=== PATIENT | male | born 2000 | race Two or more races ===

== ENCOUNTER 2022-09-21 13:04 | Emergency (ER) | payer OTHER, SELFPAY ==
--- NOTE | ~2022-09-21 | XR_ITS ---
EXAMINATION: XR CHEST CLINICAL INFORMATION: Fever, shortness of breath. COMPARISON: None available. TECHNIQUE: Frontal view of the chest was obtained. FINDINGS: No significant abnormality is noted involving the heart, lungs, mediastinum, bony thorax or soft tissues. XR/XR chest 1V IMPRESSION: No acute cardiopulmonary process.
[2022-09-21 14:11] VITALS: BP 141/73; PULSE 114; RESP 19; TEMP 39.1; O2SAT 98; BMI 53.1
--- NOTE | 2022-09-21 14:19 | ED_ITS ---
HPI - General Adult General Chief complaint: Fever <GERMAINE Chavez - Last Filed: 09/21/22 15:34> Stated complaint: fever <GERMAINE Chavez - Last Filed: 09/21/22 15:34> Time Seen by Provider: 09/21/22 17:07 <GERMAINE Chavez - Last Filed: 09/21/22 15:34> Source: patient <Georgiana Sutton NP - Last Filed: 09/21/22 17:35> Mode of arrival: ambulatory <Georgiana Sutton NP - Last Filed: 09/21/22 17:35> Limitations: no limitations <Georgiana Sutton NP - Last Filed: 09/21/22 17:35> History of Present Illness HPI narrative: 22-year-old male with history of hypertension, sleep apnea who presents to the ER with complaints of sore throat, nasal congestion, headache, body aches, neck pain, fevers since Tuesday morning. Patient denies any cough, difficulty breathing, difficulty swallowing, abdominal pain, vomiting, diarrhea, chest pain. Patient reports he was around a child in the last week who had strep pharyngitis. No recent travel <Georgiana Sutton NP - Last Filed: 09/21/22 17:35> Related Data Home medications: Previous Rx's Medication Instructions Recorded amoxicillin 875 mg-potassium 1 tab PO BID #14 tabs 09/21/22 clavulanate 125 mg tablet ibuprofen 800 mg tablet 800 mg PO Q8H PRN pain #30 tabs 09/21/22 <GERMAINE Chavez - Last Filed: 09/21/22 15:34> Allergies/adverse reactions: Allergies Allergy/AdvReac Type Severity Reaction Status Date / Time No Known Allergies Allergy Verified 09/21/22 14:14 <GERMAINE Chavez - Last Filed: 09/21/22 15:34> Review of Systems Review of Systems: Yes all other systems are reviewed and are negative <Georgiana Sutton NP - Last Filed: 09/21/22 17:35> Constitutional: Constitutional: Reports no additional constitutional complaints, Reports body ache(s), Denies chills, Reports fever(s), Reports headache(s) and Denies weakness <Georgiaan Sutton [employer]A FOUNTAIN CLERK - Last Filed: 09/21/22 17:35> Eyes: Eyes: Reports no additional eye complaints and Denies change in vision <Georgiana Sutton [employer] FOUNTAIN CLERK - Last Filed: 09/21/22 17:35> ENT: Reports system reviewed and no additional complaints, except as documented, Denies dizziness, Reports headache(s), Reports nasal congestion, Denies nasal discharge, Reports neck pain and Reports sore throat <Georgiana Sutton, [employer] FOUNTAIN CLERK - Last Filed: 09/21/22 17:35> Cardiovascular: Cardiovascular: Reports no additional cardiovascular com plaints, Denies chest pain, Denies leg edema and Denies dyspnea <Georgiana Sutton [employer] FOUNTAIN CLERK - Last Filed: 09/21/22 17:35> Respiratory: Respiratory: Reports no additional respiratory complaints, Denies cough and Denies dyspnea <Georgiana Sutton [employer] FOUNTAIN CLERK - Last Filed: 09/21/22 17:35> Gastrointestinal: Gastrointestinal: Reports no additional gastrointestinal complaints, Denies abdominal pain, Denies diarrhea, Denies nausea and Denies vomiting <Georgiana Sutton, [employer] FOUNTAIN CLERK - Last Filed: 09/21/22 17:35> Genitourinary: Genitourinary: Denies urinary incontinence <Georgiana Sutton, [employer] FOUNTAIN CLERK - Last Filed: 09/21/22 17:35> Musculoskeletal: Musculoskeletal: Reports no additional musculoskeletal complaints, Denies back pain, Denies arthralgias, Denies joint swelling, Reports neck pain, Denies numbness and Denies tingling <Georgiana Sutton [employer] FOUNTAIN CLERK - Last Filed: 09/21/22 17:35> Integumentary/Breasts: Skin/Breast: Reports system reviewed and no additional complaints, except as docu and Denies rash <Georgiana Sutton [employer] FOUNTAIN CLERK - Last Filed: 09/21/22 17:35> Neurologic: Reports system reviewed and no additional complaints, except as documented, Denies dizziness, Reports headache(s), Denies numbness, Denies tingling and Denies weakness <Georgiana Sutton [employer] FOUNTAIN CLERK - Last Filed: 09/21/22 17:35> PMFSH Past Medical History Attestation statement: The following information was validated with the patient. <Georgiana Sutton NP - Last Filed: 09/21/22 17:35> Source: old records reviewed and nursing notes reviewed <Georgiana Sutton NP - Last Filed: 09/21/22 17:35> Social History Social History: Social History Smoked in Last 30 Days: No Use of substances other than those prescribed or required for medical reasons: No Advance Directives: No Advance Directives Information Provided: Yes <GERMAINE Chavez - Last Filed: 09/21/22 15:34> Physical Exam ED Vital Signs: Vital Signs - 24 hr 09/21/22 14:11 09/21/22 17:14 Temperature 102.3 F H 100.2 F Pulse Rate 114 H 111 H Respiratory Rate 19 20 Blood Pressure 141/73 H 140/83 H Pulse Oximetry 98 97 Oxygen Delivery Method Room Air BMI result Body Mass Index 53.1 <GERMAINE Chavez - Last Filed: 09/21/22 15:34> Vital Signs - 24 hr 09/21/22 14:11 09/21/22 17:14 Temperature 102.3 F H 100.2 F Pulse Rate 114 H 111 H Respiratory Rate 19 20 Blood Pressure 141/73 H 140/83 H Pulse Oximetry 98 97 Oxygen Delivery Method Room Air BMI result Body Mass Index 53.1 <Georgiana Sutton NP - Last Filed: 09/21/22 17:35> Const General: cooperative, healthy appearing, comfortable and no acute distress <Georgiana Sutton NP - Last Filed: 09/21/22 17:35> Orientation/consciousness: patient oriented x3 <Georgiana Sutton NP - Last Filed: 09/21/22 17:35> Limitations: no limitations <Georgiana Sutton NP - Last Filed: 09/21/22 17:35> HENMT Head: Yes normal to inspection <Georgiana Sutton NP - Last Filed: 09/21/22 17:35> Ears: hearing grossly normal bilaterally, mastoids normal, no periauricular adenopathy and TM abnormal bulging and erythematous <Georgiana Sutton [employer] FOUNTAIN CLERK - Last Filed: 09/21/22 17:35> Mouth: Normal oral and palatal mucosa present <Georgiana Sutton [employer] FOUNTAIN CLERK - Last Filed: 09/21/22 17:35> Throat: Yes uvula midline and Yes abnormal tonsil (bilateral tonsillar erythema/exudate with no CONSULTANT DIETITIAN) <Georgiana Sutton [employer] FOUNTAIN CLERK - Last Filed: 09/21/22 17:35> Eyes General: appearance normal, both eyes and all related structures <Georgiana Sutton [employer] FOUNTAIN CLERK - Last Filed: 09/21/22 17:35> Pupils: Equal, round and reactive pupils present <Georgiana Sutton [employer] FOUNTAIN CLERK - Last Filed: 09/21/22 17:35> Neck Neck: Yes normal visual inspection, Yes full ROM, Yes no lymphadenopathy, Yes no meningeal signs, No positive Brudzinski's sign and No positive Kernig's sign <Georgiana Sutton [employer] FOUNTAIN CLERK - Last Filed: 09/21/22 17:35> Chest Chest palpation & inspection: normal inspection of the chest <Georgiana Sutton [employer] FOUNTAIN CLERK - Last Filed: 09/21/22 17:35> Resp Effort & Inspection: normal respiratory effort <Georgiana Sutton [employer] FOUNTAIN CLERK - Last Filed: 09/21/22 17:35> Auscultation: clear to auscultation bilaterally <Georgiana Sutton [employer] FOUNTAIN CLERK - Last Filed: 09/21/22 17:35> Cardio Rate: regular rate <Georgiana Sutton [employer] FOUNTAIN CLERK - Last Filed: 09/21/22 17:35> Rhythm: regular rhythm <Georgiana Sutton [employer] FOUNTAIN CLERK - Last Filed: 09/21/22 17:35> Peripheral pulses: Peripheral pulses 2+ throughout <Georgiana Sutton [employer] FOUNTAIN CLERK - Last Filed: 09/21/22 17:35> GI Inspection: Yes normal to inspection <Georgiana Sutton [employer] FOUNTAIN CLERK - Last Filed: 09/21/22 17:35> Palpation (GI): Soft to palpation and nontender <Georgiana Sutton [employer] FOUNTAIN CLERK - Last Filed: 09/21/22 17:35> General: Yes no CVA tenderness <Georgiana Skyecci, [employer] FOUNTAIN CLERK - Last Filed: 09/21/22 17:35> Back/Spine/Pelvis Back: no CVA tenderness <Georgiana Pascucci, [employer] FOUNTAIN CLERK - Last Filed: 09/21/22 17:35> Thoracic/Lumbar Spine: thoracic and lumbar spine normal to inspection <Georgiana Sindyi, [employer] FOUNTAIN CLERK - Last Filed: 09/21/22 17:35> Skin General skin exam: no rashes or lesions noted <Georgiana Paslinocci, [employer] FOUNTAIN CLERK - Last Filed: 09/21/22 17:35> Neuro General: patient oriented x3, moves all extremities and no meningeal signs <Georgiana Lesley, [employer] FOUNTAIN CLERK - Last Filed: 09/21/22 17:35> Cranial nerves: Yes Equal, round and reactive pupils present <Georgiana Paslinocci, [employer] FOUNTAIN CLERK - Last Filed: 09/21/22 17:35> Cognition (Neuro): normal cognition <Georgiana Skyecci, [employer] FOUNTAIN CLERK - Last Filed: 09/21/22 17:35> Gait exam (Neuro): Normal gait present <Georgiana Paslinocci, [employer] FOUNTAIN CLERK - Last Filed: 09/21/22 17:35> Extrem General: Yes normal to inspection, Yes no pedal edema and Yes no calf tenderness <Georgianamic Sutton, [employer] FOUNTAIN CLERK - Last Filed: 09/21/22 17:35> Course Course Course Narrative: This is an RME: Additional HPI, ROS, PE not included below will be deferred to primary provider. 22-year-old male presents for evaluation of fevers 103-104F at home, sore throat, headache, neck stiffness x2 days rapidly worsening. Also reporting associated lightheadedness. Was seen at urgent care negative covid and flu yesterday. PE- discomfort w/ flexion of neck. Neuro nonfocal. rapid regular rythem likley sinus tach. lungs clear Plan- blood cultures, lactic, basic labs, cxr, urine, viral test 1534 Patient noted to elevated white cell count, tachycardia, fever, tachycardia likely secondary to fever and viral illness. Patient positive for strep throat. I do not suspect severe sepsis. Patient is stable in the waiting chemistry still pending <GERMAINE Chavez - Last Filed: 09/21/22 15:34> Reevaluation(s) Reevaluation #1: Strep screen is positive. Patient with mild leukocytosis which is likely secondary to strep infection. All other labs are unremarkable. COVID screen is negative. Chest x-ray shows no acute finding. Patient received Tylenol with improvement of heart rate and temperature. Patient is tolerating secretions with no difficulty. Patient will be discharged home with antibiotics, recommendations for Motrin or Tylenol as needed. Reviewed worrisome signs and symptoms of when to return to the emergency room. Comfortable plan for discharge home. <Georgiana Sutton NP - Last Filed: 09/21/22 17:35> Medications Administered Discontinued Medications Generic Name Dose Route Start Last Admin Trade Name Freq PRN Reason Stop Dose Admin Acetaminophen 650 mg 09/21/22 14:18 09/21/22 17:19 Acetaminophen 325 Mg Tablet PO 09/21/22 14:19 650 mg ONCE ONE Administration <GERMAINE Chavez - Last Filed: 09/21/22 15:34> Medications Administered Discontinued Medications Generic Name Dose Route Start Last Admin Trade Name Freq PRN Reason Stop Dose Admin Acetaminophen 650 mg 09/21/22 14:18 09/21/22 17:19 Acetaminophen 325 Mg Tablet PO 09/21/22 14:19 650 mg ONCE ONE Administration <Georgiana Sutton NP - Last Filed: 09/21/22 17:35> Medical Decision Making Medical Decision Making MDM Narrative: This a 22-year-old male who presents with 2 days of fever, sore throat, nasal congestion, headache, body aches. On arrival patient with bilateral tonsillar erythema and swelling as well as bilateral TM erythema and bulging. No evidence of peritonsillar abscess. Patient tolerating secretions with no difficulty. Lungs are clear. No meningeal signs or lymphadenopathy. Full range of motion of cervical spine. Patient with fever of 102.3 and tachycardia which is likely secondary to fever. Patient had labs, chest x-ray, COVID and strep testing ordered from triage <Georgiana Sutton NP - Last Filed: 09/21/22 17:35> Differential Diagnosis Differential Diagnoses: The differential diagnosis associated with the presentation includes <Georgiana Sutton NP - Last Filed: 09/21/22 17:35> Strep pharyngitis, viral syndrome Low concern for meningitis (no meningeal signs, FROM of neck) or bacteremia, peritonsillar abscess or retropharyngeal abscess <Georgiana Sutton NP - Last Filed: 09/21/22 17:35> Lab Data MDM Lab Attestation statement: I reviewed the patient's lab results. <Georgiana Sutton NP - Last Filed: 09/21/22 17:35> Result Diagrams: 09/21/22 14:57 09/21/22 14:57 <GERMAINE Chavez - Last Filed: 09/21/22 15:34> Labs: Lab Results 09/21/22 09/21/22 09/21/22 Range/Units 14:57 14:57 14:57 WBC 14.8 H (4.8-10.8) X10*3/uL RBC 4.47 L (4.60-5.80) X10*6/uL Hgb 13.2 L (14.0-18.0) g/dl Hct 39.5 L (42.0-52.0) % MCV 88.4 (80.0-98.0) fL MCH 29.5 (27.0-33.0) pg MCHC 33.4 (31.0-36.0) g/dl RDW 13.7 (11.0-16.0) % Plt Count 299 (160-400) X10*3/uL MPV 8.8 L (9.4-12.4) fL Immature Gran % (Auto) 0.5 H (0.0-0.4) % Neut % (Auto) 76.4 H (45-73) % Lymph % (Auto) 10.5 L (20-40) % Yell % (Auto) 12.2 H (2-11) % Eos % (Auto) 0.1 (0-4) % Baso % (Auto) 0.3 (0-2) % Lymph # (Auto) 1.6 (1.2-4.9) X10*3/uL Yell # (Auto) 1.8 H (0.1-1.2) X10*3/uL Eos # (Auto) 0.0 (0.0-0.4) X10*3/uL Baso # (Auto) 0.0 (0.0-0.2) X10*3/uL Abs Immat Gran (auto) 0.07 H (0.00-0.03) X10*3/uL Absolute Neuts (auto) 11.3 H (2.0-8.3) x10*3/uL Absolute Nucleated RBC 0.000 (0.0-0.012) X10*3/uL Nucleated RBC % (auto) 0.0 (0.0-0.2) /100WBC Smear Tech's Comments VERIFIED Sodium 136 (135-145) mmol/L Potassium 4.0 (3.3-5.1) mmol/L Chloride 100 (96-108) mmol/L Carbon Dioxide 25 (22-29) mmol/L Anion Gap 15 (12-20) BUN 12 (9-16) mg/dL Creatinine 1.03 (0.5-1.4) mg/dL Estim Creat Clear Calc 153.2 Estimated GFR > 60 Random Glucose 106 (60-115) mg/dL Lactic Acid (0.5-2.0) mmol/L Calcium 9.4 (8.4-10.2) mg/dL Magnesium 1.9 (1.6-2.6) mg/dL Total Bilirubin 0.6 (0.0-1.0) mg/dL AST 20 (5-37) U/L ALT 24 (0-40) U/L Alkaline Phosphatase 107 (39-117) U/L Total Protein 7.4 (6.5-8.0) g/dL Albumin 4.4 (3.5-5.0) g/dL COVID-19 (ZHEN) (Negative) COVID-19 Clin Com Monoscreen (Negative) S. pyogenes GrpA REGINALD Positive A (Negative) 09/21/22 09/21/22 09/21/22 Range/Units 14:57 14:57 14:57 WBC (4.8-10.8) X10*3/uL RBC (4.60-5.80) X10*6/uL Hgb (14.0-18.0) g/dl Hct (42.0-52.0) % MCV (80.0-98.0) fL MCH (27.0-33.0) pg MCHC (31.0-36.0) g/dl RDW (11.0-16.0) % Plt Count (160-400) X10*3/uL MPV (9.4-12.4) fL Immature Gran % (Auto) (0.0-0.4) % Neut % (Auto) (45-73) % Lymph % (Auto) (20-40) % Yell % (Auto) (2-11) % Eos % (Auto) (0-4) % Baso % (Auto) (0-2) % Lymph # (Auto) (1.2-4.9) X10*3/uL Yell # (Auto) (0.1-1.2) X10*3/uL Eos # (Auto) (0.0-0.4) X10*3/uL Baso # (Auto) (0.0-0.2) X10*3/uL Abs Immat Gran (auto) (0.00-0.03) X10*3/uL Absolute Neuts (auto) (2.0-8.3) x10*3/uL Absolute Nucleated RBC (0.0-0.012) X10*3/uL Nucleated RBC % (auto) (0.0-0.2) /100WBC Smear Tech's Comments Sodium (135-145) mmol/L Potassium (3.3-5.1) mmol/L Chloride (96-108) mmol/L Carbon Dioxide (22-29) mmol/L Anion Gap (12-20) BUN (9-16) mg/dL Creatinine (0.5-1.4) mg/dL Estim Creat Clear Calc Estimated GFR Random Glucose (60-115) mg/dL Lactic Acid 1.3 (0.5-2.0) mmol/L Calcium (8.4-10.2) mg/dL Magnesium (1.6-2.6) mg/dL Total Bilirubin (0.0-1.0) mg/dL AST (5-37) U/L ALT (0-40) U/L Alkaline Phosphatase (39-117) U/L Total Protein (6.5-8.0) g/dL Albumin (3.5-5.0) g/dL COVID-19 (ZHEN) Negative (Negative) COVID-19 Clin Com See Note Monoscreen Negative (Negative) S. pyogenes GrpA REGINALD (Negative) <GERMAINE Chavez - Last Filed: 09/21/22 15:34> Lab Results 09/21/22 09/21/22 09/21/22 Range/Units 14:57 14:57 14:57 WBC 14.8 H (4.8-10.8) X10*3/uL RBC 4.47 L (4.60-5.80) X10*6/uL Hgb 13.2 L (14.0-18.0) g/dl Hct 39.5 L (42.0-52.0) % MCV 88.4 (80.0-98.0) fL MCH 29.5 (27.0-33.0) pg MCHC 33.4 (31.0-36.0) g/dl RDW 13.7 (11.0-16.0) % Plt Count 299 (160-400) X10*3/uL MPV 8.8 L (9.4-12.4) fL Immature Gran % (Auto) 0.5 H (0.0-0.4) % Neut % (Auto) 76.4 H (45-73) % Lymph % (Auto) 10.5 L (20-40) % Yell % (Auto) 12.2 H (2-11) % Eos % (Auto) 0.1 (0-4) % Baso % (Auto) 0.3 (0-2) % Lymph # (Auto) 1.6 (1.2-4.9) X10*3/uL Yell # (Auto) 1.8 H (0.1-1.2) X10*3/uL Eos # (Auto) 0.0 (0.0-0.4) X10*3/uL Baso # (Auto) 0.0 (0.0-0.2) X10*3/uL Abs Immat Gran (auto) 0.07 H (0.00-0.03) X10*3/uL Absolute Neuts (auto) 11.3 H (2.0-8.3) x10*3/uL Absolute Nucleated RBC 0.000 (0.0-0.012) X10*3/uL Nucleated RBC % (auto) 0.0 (0.0-0.2) /100WBC Smear Tech's Comments VERIFIED Sodium 136 (135-145) mmol/L Potassium 4.0 (3.3-5.1) mmol/L Chloride 100 (96-108) mmol/L Carbon Dioxide 25 (22-29) mmol/L Anion Gap 15 (12-20) BUN 12 (9-16) mg/dL Creatinine 1.03 (0.5-1.4) mg/dL Estim Creat Clear Calc 153.2 Estimated GFR > 60 Random Glucose 106 (60-115) mg/dL Lactic Acid (0.5-2.0) mmol/L Calcium 9.4 (8.4-10.2) mg/dL Magnesium 1.9 (1.6-2.6) mg/dL Total Bilirubin 0.6 (0.0-1.0) mg/dL AST 20 (5-37) U/L ALT 24 (0-40) U/L Alkaline Phosphatase 107 (39-117) U/L Total Protein 7.4 (6.5-8.0) g/dL Albumin 4.4 (3.5-5.0) g/dL COVID-19 (ZHEN) (Negative) COVID-19 Clin Com Monoscreen (Negative) S. pyogenes GrpA REGINALD Positive A (Negative) 09/21/22 09/21/22 09/21/22 Range/Units 14:57 14:57 14:57 WBC (4.8-10.8) X10*3/uL RBC (4.60-5.80) X10*6/uL Hgb (14.0-18.0) g/dl Hct (42.0-52.0) % MCV (80.0-98.0) fL MCH (27.0-33.0) pg MCHC (31.0-36.0) g/dl RDW (11.0-16.0) % Plt Count (160-400) X10*3/uL MPV (9.4-12.4) fL Immature Gran % (Auto) (0.0-0.4) % Neut % (Auto) (45-73) % Lymph % (Auto) (20-40) % Yell % (Auto) (2-11) % Eos % (Auto) (0-4) % Baso % (Auto) (0-2) % Lymph # (Auto) (1.2-4.9) X10*3/uL Yell # (Auto) (0.1-1.2) X10*3/uL Eos # (Auto) (0.0-0.4) X10*3/uL Baso # (Auto) (0.0-0.2) X10*3/uL Abs Immat Gran (auto) (0.00-0.03) X10*3/uL Absolute Neuts (auto) (2.0-8.3) x10*3/uL Absolute Nucleated RBC (0.0-0.012) X10*3/uL Nucleated RBC % (auto) (0.0-0.2) /100WBC Smear Tech's Comments Sodium (135-145) mmol/L Potassium (3.3-5.1) mmol/L Chloride (96-108) mmol/L Carbon Dioxide (22-29) mmol/L Anion Gap (12-20) BUN (9-16) mg/dL Creatinine (0.5-1.4) mg/dL Estim Creat Clear Calc Estimated GFR Random Glucose (60-115) mg/dL Lactic Acid 1.3 (0.5-2.0) mmol/L Calcium (8.4-10.2) mg/dL Magnesium (1.6-2.6) mg/dL Total Bilirubin (0.0-1.0) mg/dL AST (5-37) U/L ALT (0-40) U/L Alkaline Phosphatase (39-117) U/L Total Protein (6.5-8.0) g/dL Albumin (3.5-5.0) g/dL COVID-19 (ZHEN) Negative (Negative) COVID-19 Clin Com See Note Monoscreen Negative (Negative) S. pyogenes GrpA REIGNALD (Negative) <Georgiana Sutton NP - Last Filed: 09/21/22 17:35> Independent Interpretation I performed an independent interpretation of an: Plain X-Ray <Georgiana Sutton NP - Last Filed: 09/21/22 17:35> Interpretation: I independently reviewed the chest x-ray and agree with radiologist's report <Georgiana Sutton NP - Last Filed: 09/21/22 17:35> Radiology Impression Discussion of test interpretation with radiology: I have reviewed the radiologist's reading. <Georgiana Sutton NP - Last Filed: 09/21/22 17:35> Discharge Plan Discharge Clinical Impression: Pharyngitis <GERMAINE Chavez - Last Filed: 09/21/22 15:34> Patient Disposition: Home, Self-Care <GERMAINE Chavez - Last Filed: 09/21/22 15:34> Instructions: Pharyngitis (ED) <GERMAINE Chavez - Last Filed: 09/21/22 15:34> Additional Instructions: Increase fluid, rest Alternate motrin/tylenol for pain or fever Covid test is negative Change your toothbrush after 24 hrs <GERMAINE Chavez - Last Filed: 09/21/22 15:34> Prescriptions: New amoxicillin-pot clavulanate 875-125 mg tablet 1 tab PO BID Qty: 14 0RF ibuprofen 800 mg tablet 800 mg PO Q8H PRN (Reason: pain) Qty: 30 0RF <GERMAINE Chavez - Last Filed: 09/21/22 15:34> Referrals: Physician,Unknown J [Primary Care Provider] - <GERMAINE Chavez - Last Filed: 09/21/22 15:34> Stand Alone Forms: Work/School Release <GERMAINE Chavez - Last Filed: 09/21/22 15:34>
[2022-09-21 15:14] LABS: IDNOW Serial# 08D9AD1C; Strep A Nucleic Acid Positive (Negative)
[2022-09-21 15:18] LABS: Basophils Percent Auto 0.3 % (0-2); Eosinophils Percent Auto 0.1 % (0-4); Hematocrit 39.5 % (42.0-52.0); Hemoglobin 13.2 g/dl (14.0-18.0); Imm Gran Abs Auto 0.07 X10*3/uL (0.00-0.03); Imm Gran Pct Auto 0.5 % (0.0-0.4); Lymphocytes Absolute Auto 1.6 X10*3/uL (1.2-4.9); Lymphocytes Percent Auto 10.5 % (20-40); MANUAL DIFF FLAG SCAN; Mean Corpuscular HGB Conc 33.4 g/dl (31.0-36.0); Mean Corpuscular Hemoglobin 29.5 pg (27.0-33.0); Mean Corpuscular Volume 88.4 fL (80.0-98.0); Mean Platelet Volume 8.8 fL (9.4-12.4); Monocytes Absolute Auto 1.8 X10*3/uL (0.1-1.2); Monocytes Percent Auto 12.2 % (2-11); Neutrophils Absolute Auto 11.3 x10*3/uL (2.0-8.3); Neutrophils Percent Auto 76.4 % (45-73); Platelet Count 299 X10*3/uL (160-400); Red Blood Count 4.47 X10*6/uL (4.60-5.80); Red Cell Distribution Width 13.7 % (11.0-16.0); SCAN SMEAR FLAG 1; White Blood Count 14.8 X10*3/uL (4.8-10.8)
[2022-09-21 15:23] LABS: COVID-19 Test Negative (Negative); IDNOW Serial# BCCEAD1C
[2022-09-21 15:41] LABS: Lactic Acid 1.3 mmol/L (0.5-2.0)
[2022-09-21 15:44] LABS: Alanine Aminotransferase 24 U/L (0-40); Albumin Level 4.4 g/dL (3.5-5.0); Alkaline Phosphatase 107 U/L (39-117); Anion Gap 15 (12-20); Aspartate Amino Transferase 20 U/L (5-37); Bilirubin Total 0.6 mg/dL (0.0-1.0); Blood Urea Nitrogen 12 mg/dL (9-16); Calcium 9.4 mg/dL (8.4-10.2); Carbon Dioxide 25 mmol/L (22-29); Chloride 100 mmol/L (96-108); Creatinine Clr Calc Pharmacy 153.2; Estimated Glomerular Filt Rate > 60; Glucose Random 106 mg/dL (60-115); Magnesium 1.9 mg/dL (1.6-2.6); Sodium 136 mmol/L (135-145); Total Protein 7.4 g/dL (6.5-8.0)
[2022-09-21 15:50] LABS: SLIDE REVIEW VERIFIED
[2022-09-21 15:54] LABS: Monotest Negative (Negative)
[2022-09-21 17:14] VITALS: BP 140/83; PULSE 111; RESP 20; TEMP 37.9; O2SAT 97
[2022-09-21] MEDS: Acetaminophen 325 MG TABLET 650 MG PO (17:19)
== END 2022-09-21 18:14 | disposition home or self-care (01) ==
PROVIDERS: Physician Assistant; Emergency Provider Emergency Medicine
DX: J02.9 Acute pharyngitis, unspecified (principal); R50.9 Fever, unspecified; I10 Essential (primary) hypertension; R51.9 Headache, unspecified; Z20.822 Contact with and (suspected) exposure to COVID-19; Z20.828 Contact with and (suspected) exposure to other viral communicable diseases; Z79.899 Other long term (current) drug therapy
CPT/HCPCS: 36415; 71045; 80053; 83605; 83735; 85025; 86308; 87040; 87635; 87651; 99283; 99284